=== PATIENT | male | born 1990 | race African-American/Black ===

== ENCOUNTER 2020-04-28 13:47 | Emergency (ER) | payer OTHER ==
[~2020-04-28] VITALS: Ht 177.8 cm; Wt 72.7 kg
[2020-04-28 13:51] VITALS: BP 114/69
[2020-04-28 15:11] LABS: COVID AG,FIA SOURCE NASOPHARYNGEAL
== END 2020-04-28 15:53 | disposition home or self-care (01) ==
LOC: EMS 13:49
DX: J06.9 Acute upper respiratory infection, unspecified (principal); Z20.828 Contact with and (suspected) exposure to other viral communicable diseases
CPT/HCPCS: 87426

== ENCOUNTER 2021-06-17 19:42 | Emergency (ER) | payer OTHER ==
[~2021-06-17] VITALS: Ht 177.8 cm; Wt 73.2 kg
[2021-06-17] MEDS ORDERED: DIPH30C TP (22:53)
[2021-06-17] MEDS ORDERED: DiphenhydrAMINE/ZINC ACET 30 GM CREAM TP ONE (23:00)
[2021-06-18 02:45] VITALS: BP 118/78
== END 2021-06-18 02:45 | disposition home or self-care (01) ==
LOC: EMS 20:01
DX: S13.9XXA Sprain of joints and ligaments of unspecified parts of neck, initial encounter (principal); M25.511 Pain in right shoulder; V49.9XXA Car occupant (driver) (passenger) injured in unspecified traffic accident, initial encounter; Y93.89 Activity, other specified; Y92.481 Parking lot as the place of occurrence of the external cause; Y99.8 Other external cause status
CPT/HCPCS: 72050; 99284; 73030-TC; Z7502; Z7610